=== PATIENT | female | born 1980 | race Caucasian/White ===

== ENCOUNTER 2023-01-19 11:02 | Outpatient (CLI) | payer BC, SELFPAY | END 2023-01-19 11:03 | disposition home or self-care (01) | PROVIDERS: PCP Internal Medicine; Visit Provider Obstetrics & Gynecology | DX: R19.00 Intra-abdominal and pelvic swelling, mass and lump, unspecified site (principal); Z12.4 Encounter for screening for malignant neoplasm of cervix | CPT/HCPCS: 82378; 86301; 86304 ==

== ENCOUNTER 2023-02-23 08:19 | Outpatient (CLI) | payer BC, SELFPAY ==
--- NOTE | 2023-02-23 09:08 | W.ANESCHARGE ---
Anesthesia Charges Start Date/Time Anesthesia Start Date: 02/23/23 Anesthesia Start Time: 09:11 Stop Date/Time Anesthesia Stop Date: 02/23/23 Anesthesia Stop Time: 09:40
--- NOTE | 2023-02-23 09:44 | W.ANESCHARGE ---
Anesthesia Charges Start Date/Time Anesthesia Start Date: 02/23/23 Anesthesia Start Time: 09:11 Stop Date/Time Anesthesia Stop Date: 02/23/23 Anesthesia Stop Time: 09:40
== END 2023-02-23 08:20 | disposition home or self-care (01) ==
LOC: OP CLINIC 08:19
PROVIDERS: PCP Internal Medicine; Visit Provider Internal Medicine
DX: R93.3 Abnormal findings on diagnostic imaging of other parts of digestive tract (principal)
CPT/HCPCS: 45378; 811; 812; J2704

== ENCOUNTER 2023-07-17 09:24 | Outpatient (CLI) | payer OTHER, SELFPAY | END 2023-07-17 09:25 | disposition home or self-care (01) | LOC: INJ CL 09:25 | PROVIDERS: PCP Physician Assistant; Visit Provider Family Medicine | DX: M54.16 Radiculopathy, lumbar region (principal); M51.26 Other intervertebral disc displacement, lumbar region | CPT/HCPCS: 62323; J0702; Q9966 ==

== ENCOUNTER 2023-09-11 09:33 | Outpatient (CLI) | payer OTHER, BC, SELFPAY | END 2023-09-11 09:34 | disposition home or self-care (01) | LOC: INJ CL 09:34 | PROVIDERS: PCP Physician Assistant; Visit Provider Family Medicine | DX: M54.16 Radiculopathy, lumbar region (principal); M51.26 Other intervertebral disc displacement, lumbar region | CPT/HCPCS: 62323; J0702; Q9966 ==

== ENCOUNTER 2024-10-14 09:32 | Outpatient (CLI) | payer OTHER, BC, SELFPAY | END 2024-10-14 09:33 | disposition home or self-care (01) | LOC: INJ CL 09:32 | PROVIDERS: PCP Physician Assistant; Visit Provider Family Medicine | DX: M54.16 Radiculopathy, lumbar region (principal); M51.26 Other intervertebral disc displacement, lumbar region | CPT/HCPCS: 62323; J0702; Q9966 ==